=== PATIENT | female | born 1960 | race Caucasian/White ===

== ENCOUNTER → 2020-05-11 12:25 | Outpatient (CLI) | payer OTHER, SELFPAY ==
--- NOTE | 2020-05-11 12:34 | DI.MRI.S_ITS ---
PROCEDURE: MR KNEE LT WO CON INDICATIONS: Pain in left knee TECHNIQUE: Noncontrast sagittal PD fast spin echo and T2 fast spin echo with fat saturation, sagittal 3-D FLASH with fat saturation; coronal T1 spin echo and PD fast spin echo with fat saturation, and axial PD fast spin echo with fat saturation through the knee. COMPARISON: [facility], CR, XR KNEE 4+ VIEWS LEFT, 04/21/2020, 19:05. [facility], CR, XR KNEE STANDING BILATERAL, 05/02/2020, 15:43. FINDINGS: Image quality: Excellent. Menisci: There is a radially oriented tear at the posterior root attachment of the medial meniscus. Mild intrasubstance degeneration is seen in the body of the medial meniscus without significant meniscal extrusion. The lateral meniscus is intact. Cruciate ligaments: The anterior and posterior cruciate ligaments appear intact. Medial structures: The medial collateral ligament appears intact. The semimembranosus tendon insertions and meniscocapsular junction appear intact. Visualized portions of the pes anserinus tendons appear normal. No abnormal bursal fluid. Lateral structures: The lateral collateral ligament, long and short heads of the biceps femoris tendon appear intact. The popliteus tendon appears intact. No signs of posterolateral corner injury. Iliotibial band appears normal. Anterior structures: There is mild patella emilia. The distal quadriceps tendon is intact. A congenitally shallow trochlear groove is seen with lateral patellar tilting and mild lateral patellar subluxation. The tibial tubercle-trochlear groove distance is within normal limits. No significant edema is seen in the infrapatellar fat pad. Bones and cartilage: Mild edema at the posterior medial tibial plateau is likely reactive to the adjacent meniscal tear. Mild surface irregularity is seen in the anterior articular cartilage. No focal high-grade cartilage defect is seen in the medial or lateral femorotibial compartments. Joint space: There is a small joint effusion. A small medial popliteal cyst is present. IMPRESSION: 1. Radially to tear the posterior root attachment of the medial meniscus without significant meniscal extrusion. 2. 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 3. Mild patella emilia. A congenitally shallow trochlear groove is seen with lateral patellar tilting and mild lateral patellar subluxation. The tibial tubercle-trochlear groove distance is within normal limits. 4. Small joint effusion. Small medial popliteal cyst. Dictated by: Levi Head M.D. on 05/11/2020 at 13:21 Approved by: Levi Head M.D. on 05/11/2020 at 13:27
== END ==
PROVIDERS: Referring Provider Orthopaedic Surgery Foot and Ankle Surgery; Visit Provider Orthopaedic Surgery Foot and Ankle Surgery
DX: M25.562 Pain in left knee (principal); S83.242A Other tear of medial meniscus, current injury, left knee, initial encounter; M94.262 Chondromalacia, left knee; M22.8X2 Other disorders of patella, left knee; M71.22 Synovial cyst of popliteal space [Baker], left knee; M25.462 Effusion, left knee
CPT/HCPCS: 73721

== ENCOUNTER → 2023-06-26 11:20 | Outpatient (CLI) | payer OTHER, SELFPAY ==
--- NOTE | 2023-06-26 11:24 | DI.MG.S_ITS ---
BILATERAL DIGITAL SCREENING MAMMOGRAM 3D/2D WITH CAD: 06/26/2023 CLINICAL: Routine screening. Comparison is made to exams dated: 04/26/2020 mammogram and 10/09/2021 mammogram - [facility]. Both breasts are almost entirely fatty (category a/<25% glandular tissue). Current study was also evaluated with a Computer Aided Detection (CAD) system. No significant masses, calcifications, or other findings are seen in either breast. There has been no significant interval change. IMPRESSION: NEGATIVE There is no mammographic evidence of malignancy. A 1 year screening mammogram is recommended. Based on the Tyrer Cuzick model (a risk assessment model) the patient's lifetime risk is 2.7% and her 10 year risk is 1.2%. According to the ACR, ACS, and NCCN guidelines, an annual breast MRI exam along with mammogram is recommended if the patient's lifetime risk is 20% or greater. This exam was interpreted at Station ID: [id number]. NOTE: For mammograms, a report in lay terms will be sent to the patient. Approximately 15% of breast malignancies will not be visualized mammographically. In the management of a palpable breast mass, a negative mammogram must not discourage biopsy of a clinically suspicious lesion. Electronically Signed By: Harshad bhatti/maday:06/26/2023 14:00:27 letter sent: Normal Exam ACR BI-RADS Category 1: Negative [id number]
== END ==
PROVIDERS: PCP Student in an Organized Health Care Education/Training Program; Referring Provider Student in an Organized Health Care Education/Training Program; Visit Provider Student in an Organized Health Care Education/Training Program
DX: Z12.31 Encounter for screening mammogram for malignant neoplasm of breast (principal)
CPT/HCPCS: 77063; 77067

== ENCOUNTER → 2023-07-02 12:51 | Outpatient (CLI) | payer OTHER, SELFPAY ==
--- NOTE | 2023-07-02 12:53 | DI.MRI.S_ITS ---
PROCEDURE: MR LUMBAR SPINE WO CON INDICATIONS: Radiculopathy, lumbar region TECHNIQUE: Noncontrast sagittal T1 spin echo and T2 fast echo, sagittal STIR, and T2 fast spin echo through the lumbar spine. In cases with scoliosis, additional coronal T2 fast spin echo may be performed. COMPARISON: None. FINDINGS: Image quality: Excellent. Alignment and Curvature: Mild retrolisthesis of L2 on L3. Bone Marrow: Marrow is of normal overall signal. Mild anterior wedging of L1. No acute vertebral body compression fractures. Spinal Cord: Conus medullaris terminates at the L2 level. Visualized cord demonstrates normal signal and size. Paraspinous Soft Tissues: No paravertebral masses. T12-L1: Disc desiccation and height loss. No central canal or neural foraminal stenosis. L1-L2: Disc desiccation and height loss. No central canal or neural foraminal stenosis. L2-L3: Disc desiccation and minimal posterior disc bulge. Facet arthropathy. No central canal or neural foraminal stenosis. L3-L4: Disc desiccation. No central canal stenosis. Facet arthropathy. Mild bilateral neural foraminal stenosis. L4-L5: Disc desiccation and height loss. Mild posterior disc bulge. Facet arthropathy and thickening of the ligamentum flavum. Epidural lipomatosis. Mild central canal stenosis. Mild bilateral neural foraminal stenosis. L5-S1: Disc desiccation. Minimal disc bulge. No central canal stenosis. Facet arthropathy. Mild left neural foraminal stenosis. No right neural foraminal stenosis. IMPRESSION: 1. Mild multilevel degenerative changes of the lumbar spine as described above. 2. Mild central canal stenosis at L4-5. 3. Mild neural foraminal stenosis bilaterally at L3-L4 and L4-5, on the left at L5-S1. Dictated by: Phil Ramos M.D. on 07/02/2023 at 14:57 Approved by: Phil Ramos M.D. on 07/02/2023 at 15:00
== END ==
PROVIDERS: PCP Student in an Organized Health Care Education/Training Program; Referring Provider Orthopaedic Surgery Orthopaedic Surgery of the Spine; Visit Provider Orthopaedic Surgery Orthopaedic Surgery of the Spine
DX: M47.26 Other spondylosis with radiculopathy, lumbar region (principal); M47.27 Other spondylosis with radiculopathy, lumbosacral region; M48.061 Spinal stenosis, lumbar region without neurogenic claudication; M48.07 Spinal stenosis, lumbosacral region
CPT/HCPCS: 72148

== ENCOUNTER → 2025-04-05 10:42 | Outpatient (CLI) | payer MEDICARE, SELFPAY ==
--- NOTE | 2025-04-05 10:47 | DI.RAD.S_ITS ---
PROCEDURE: XR CERVICAL SPINE 4V OR 5V INDICATIONS: Radiculopathy, cervical region TECHNIQUE: Five views of the cervical spine acquired. COMPARISON: None. FINDINGS: Cervical spine curvature and alignment: Normal. Bones: There are no osseous abnormalities. Disc spaces: Mild C5-6 moderate C6-7 degenerative disc disease noted. Moderate C3-4 through C7-T1 degenerative facet disease Intervertebral foramen: Grossly normal in width. Soft tissues: No soft tissue swelling, calcification or mass. IMPRESSION: Degeneration Dictated by: Jasmeet Sheikh M.D. on 04/06/2025 at 11:41 Approved by: Jasmeet Sheikh M.D. on 04/06/2025 at 11:41
== END ==
PROVIDERS: PCP Family Medicine; Referring Provider Family Medicine; Visit Provider Family Medicine
DX: M50.122 Cervical disc disorder at C5-C6 level with radiculopathy (principal); M47.22 Other spondylosis with radiculopathy, cervical region; M47.23 Other spondylosis with radiculopathy, cervicothoracic region
CPT/HCPCS: 72050

== ENCOUNTER → 2025-07-20 09:57 | Outpatient (CLI) | payer MEDICARE, SELFPAY ==
--- NOTE | 2025-07-20 09:58 | DI.MG.S_ITS ---
MM screening mammo BI: 07/20/2025. BI-RADS: 1 CLINICAL: 65-year old female for bilateral screening mammogram. Tyrer-Cuzick lifetime risk of 1.4%. No personal or first-degree family history of breast cancer. PRIOR EXAMS 06/26/2023, 10/09/2021, 04/26/2020. MAMMOGRAPHY TECHNIQUE: 2D and 3D (tomosynthesis) digital mammographic views obtained, with additional images as needed for full coverage. Current study was also evaluated with a Computer Aided Detection (CAD) system. DENSITY A. The breasts are almost entirely fatty. MAMMOGRAPHY FINDINGS Bilateral: No suspicious mass, asymmetry, microcalcification, or other abnormality seen. IMPRESSION: * No evidence of malignancy. RECOMMENDATIONS Bilateral * Annual screening mammography. OVERALL ASSESSMENT CATEGORY BI-RADS-1: Negative. The [employer] recommends annual screening mammography beginning at age 40 for women with average risk of breast cancer. ELECTRONICALLY SIGNED: Leila Nayak M.D. on 07/20/2025 at 02:55:04 PM PT Interpreting Station ID: [id number]
--- NOTE | 2025-07-20 09:58 | DI.RAD.S_ITS ---
PROCEDURE: XR DEXA AXIAL SKELETON INDICATIONS: Screening mammogram/Osteoporosis screening COMPARISON: None. FINDINGS: Lumbar Spine: Bone mineral density 1.181 g/cm2, T score 1.2, baseline. Left Femoral Neck: Bone mineral density 0.651 g/cm2, T score -1.8. Left Hip: Bone mineral density is 0.861 g/cm2, T score -0.7, baseline. Fracture Risk Calculation (when applicable): 10-year fracture risk of a major osteoporotic fracture 9.3 percent and of a hip fracture 1.1 percent. (T score greater or equal to -1.0 to: NORMAL) (T score from -1.1 to -2.4: OSTEOPENIA) (T score less than or equal to -2.5: OSTEOPOROSIS) IMPRESSION: Osteopenia. Follow-up guidelines as follows: Osteoporosis: Consider a repeat DEXA and Vertebral Fracture Assessment (VFA) exam in 2 years or sooner if medically necessary, to reassess this patient's status. Osteopenia: Consider a repeat DEXA in 2-3 years to reassess this patient's status, or if there is a new clinical indication. Normal: Consider a repeat DEXA in 5 years or sooner, or if there is a new clinical indication. All treatment decisions require clinical judgment and consideration of individual patient factors, including patient preferences, comorbidities, previous drug use, risk factors not captured in the FRAX model (e.g., frailty, falls, vitamin D deficiency, increased bone turnover, interval significant decline in bone density ) and possible under- or over-estimation of fracture risk by FRAX. In addition, the NOF Guide recommends that FDA-approved medical therapies be considered in postmenopausal women and men age >= 50 years with a: * Hip or vertebral (clinical or morphometric) fracture * T-score of <=-2.5 at the spine or hip * Ten-year fracture probability by FRAX of >= 3% for hip fracture or >=20% for major osteoporotic fracture. Dictated by: Alex Layne M.D. on 07/20/2025 at 11:49 Approved by: Alex Layne M.D. on 07/20/2025 at 11:50
== END ==
LOC: MAMMO 09:58
PROVIDERS: PCP Family Medicine; Referring Provider Family Medicine; Visit Provider Family Medicine
DX: Z12.31 Encounter for screening mammogram for malignant neoplasm of breast (principal); R92.313 Mammographic fatty tissue density, bilateral breasts; M85.89 Other specified disorders of bone density and structure, multiple sites; Z78.0 Asymptomatic menopausal state; Z91.89 Other specified personal risk factors, not elsewhere classified
CPT/HCPCS: 77063; 77067; 77080